=== PATIENT | female | born 2000 | race Hispanic/Latino ===

== ENCOUNTER 2019-10-26 00:17 | Inpatient (IN) | payer OTHER ==
[~2019-10-26] VITALS: Ht 149.9 cm; Wt 49.4 kg
[2019-10-26 00:49] LABS: APPEARANCE,URINE Clear (CLEAR); BILIRUBIN,URINE Negative (NEGATIVE); COLOR,URINE Yellow (YELLOW); GLUCOSE, URINE (UA) >=1000 mg/dL (NEGATIVE); KETONES,URINE Negative (NEGATIVE); LEUKOCYTE ESTERASE ,URINE Negative (NEGATIVE); NITRATE,URINE Negative (NEGATIVE); OCCULT BLOOD,URINE Negative (NEGATIVE); PROTEIN,URINE POS 2+ mg/dL (NEGATIVE)
[2019-10-26 01:12] LABS: BASOPHILS % (AUTO) 0.3 % (0.0-5.0); EOSINOPHILS % (AUTO) 2.1 % (0.0-8.0); HEMATOCRIT 41.1 % (36-48); LYMPHOCYTES % (AUTO) 25.5 % (21.0-51.0); MEAN CORPUSCULAR HEMOGLOBIN 26.5 pg (27.0-33.0); MEAN CORPUSCULAR HGB CONC 33.1 g/dL (32.0-36.0); MONOCYTES % (AUTO) 9.8 % (3.0-13.0); NEUTROPHILS % (AUTO) 61.9 % (40.0-77.0); PLATELET COUNT (AUTO) 432 K/uL (130-400); RED BLOOD CELL COUNT(AUTO) 5.14 MIL/uL (4.00-5.50); WHITE BLOOD COUNT (AUTO) 12.2 K/uL (4.8-10.8)
[2019-10-26 01:17] LABS: BACTERIA,URINE Few /HPF (None Seen); SQUAMOUS EPITHELIAL CELL,UR 0-2 /HPF (0-2); WBC,URINE 0-1 /HPF (0-1)
[2019-10-26 01:18] LABS: AMORPHOUS SEDIMENT,UR Few /LPF (None Seen)
[2019-10-26 01:22] LABS: CREATININE 0.5 mg/dL (0.5-1.5); POTASSIUM 3.7 mmol/L (3.5-5.1)
[2019-10-26 01:26] LABS: ALBUMIN 2.8 g/dL (3.5-5.0); BILIRUBIN,TOTAL 0.1 mg/dL (0.2-1.0); TOTAL PROTEIN, SERUM 8.9 g/dL (6.0-8.3)
[2019-10-26 01:29] LABS: INR 0.92 (0.85-1.15)
[2019-10-26] MEDS ORDERED: ALBUTEROL INHALER 90MCG/INH IH ONE (01:29)
[2019-10-26 01:43] LABS: ABG HCO3 28.2 mmol/L (21.0-28.0); ABG OXYGEN SATURATION 89.8 % (95.0-99.0); ABG PCO2 41 mmHg (32-45)
[2019-10-26] MEDS ORDERED: ZOSYN 3.375GM+NS 50ML 50 ML IV ONE (01:43)
[2019-10-26] MEDS ORDERED: IOHEXOL-350 75 ML VIAL IV ONE (02:29)
[2019-10-26] MEDS ORDERED: ACETAMINOPHEN 325 MG TAB PO PRN ×2 (03:00)
[2019-10-26] MEDS ORDERED: SODIUM CHLORIDE 0.9% 1000ML 1,000 ML IV SCH (03:00)
[2019-10-26] MEDS ORDERED: ONDANSETRON HCL 4 MG/2 ML VIAL IV PRN (03:00)
[2019-10-26] MEDS: AZITHROMYCIN 500MG+NS 250ML 250 ML IV SCH (03:00)
[2019-10-26] MEDS ORDERED: AZITHROMYCIN 500MG+NS 250ML 250 ML IV ONE (03:24)
[2019-10-26] MEDS ORDERED: ONDANSETRON HCL 4 MG/2 ML VIAL ONE (03:47)
[2019-10-26] MEDS ORDERED: POLYETHYLENE GLYCOL 3350 17 GM POWD.PACK PO PRN (04:15)
[2019-10-26] MEDS ORDERED: ALBUTEROL INHALER 90MCG/INH IH PRN (04:15)
--- NOTE | 2019-10-26 05:00 | NUR ---
NEW ADMIT 19 year old, female, received from ED with a diagnosis of acute respiratory failure. Pt is A&Ox4. O2 noted at 4L/NC. Lung sounds with crackles bilat. SOB with exertion. Pt is Micronesian speaking only. 18g IV noted to right FA, site without redness, swelling, or warmth. oriented to room, side rails up x 2, bed in lowest position and locked. Instructed to call for need will. cont to monitor.
[2019-10-26 05:06] VITALS: BP 109/60
[2019-10-26] MEDS ORDERED: INSLAN SQ (05:57)
[2019-10-26] MEDS ORDERED: [UNRECOGNIZED DRUG - CODE] IH (06:09)
[2019-10-26] MEDS ORDERED: folic PO (06:09)
[2019-10-26] MEDS ORDERED: INSU100V3 SQ (06:09)
[2019-10-26] MEDS ORDERED: VITAD400 PO (06:09)
[2019-10-26] MEDS ORDERED: SYMB8060 IH (06:09)
[2019-10-26] MEDS ORDERED: creon (06:09)
[2019-10-26] MEDS ORDERED: ALBUHFA IH (06:09)
[2019-10-26] MEDS ORDERED: GLUC1VIA14 IJ (06:09)
[2019-10-26] MEDS: INSULIN HUMULIN R 100 UNIT/ML 3ML SQ SCH ×4 (06:47→20:54)
[2019-10-26] MEDS ORDERED: ERGOCALCIFEROL (VITAMIN D2) 50,000 UNIT CAPSULE PO SCH (09:00)
[2019-10-26 09:02] VITALS: BP 104/58
[2019-10-26] MEDS: DOCUSATE SODIUM 100 MG CAP PO SCH ×2 (09:27→20:52)
[2019-10-26] MEDS: ASCORBIC ACID 500 MG TAB PO SCH (09:27)
[2019-10-26] MEDS: DOXYCYCLINE 100MG+NS 250ML 250 ML IV SCH ×2 (09:27→18:27)
[2019-10-26] MEDS: FOLIC ACID 1 MG TABLET PO SCH (09:27)
[2019-10-26] MEDS: METHYLPREDNISOLONE SOD SUCC 40MG/ML 1ML IVP SCH ×2 (09:27→14:18)
[2019-10-26] MEDS: ACETYLCYSTEINE 600 MG CAPSULE PO SCH ×2 (09:27→20:54)
[2019-10-26] MEDS: ENOXAPARIN SODIUM 40 MG/0.4 ML SYRINGE SQ SCH (09:28)
[2019-10-26] MEDS: ZINC SULFATE 220 CAPSULE PO SCH (09:29)
[2019-10-26] MEDS ORDERED: VANCOMYCIN PROTOCOL PER PHARMACY IV SCH (11:45)
[2019-10-26 12:00] VITALS: BP 97/56
[2019-10-26] MEDS: ZOSYN 3.375GM+NS 50ML 50 ML IV SCH ×2 (12:51→20:54)
[2019-10-26] MEDS ORDERED: VANCOMYCIN 750MG + NS 250 ML IV SCH ×2 (13:00)
[2019-10-26] MEDS ORDERED: COMPOUND IV REFRIGERATED 1 EACH IVSOLN MISC PRN (13:00)
[2019-10-26 16:00] VITALS: BP 111/70
[2019-10-26] MEDS: LIPASE/PROTEASE/AMYLASE 5000/17000/24000 PO SCH (17:00)
--- NOTE | 2019-10-26 18:56 | NUR ---
INITIAL: Call placed to pts room. Was able to speak w pt via phone. Per pt prior to admission was living w her aunt Althea. She is independent w ambulation and ADLs. She owns a nebulizer machine. Pt states that she feels safe and comfortable to [place] home at [place]. discussed w her $4 prescription drug program avail via [facility] or [facility]. States she sometimes sees a orchid transplanter in [facility]. CM to continue to follow and wait for Md recommendations. Addendum: 10/27/19 at 1858 by MILES BEST Amended: Links added.
[2019-10-26 19:00] VITALS: BP 111/67
[2019-10-26] MEDS: INSULIN GLARGINE 100 UNITS/ML 10 ML VIAL SQ SCH (20:53)
[2019-10-26 23:00] VITALS: BP 103/57
[2019-10-27] MEDS: DOXYCYCLINE 100MG+NS 250ML 250 ML IV SCH ×3 (01:37→21:00)
[2019-10-27 03:00] VITALS: BP 101/58
[2019-10-27] MEDS: ZOSYN 3.375GM+NS 50ML 50 ML IV SCH ×3 (04:29→20:01)
[2019-10-27 05:36] LABS: BASOPHILS % (AUTO) 0.4 % (0.0-5.0); EOSINOPHILS % (AUTO) 1.6 % (0.0-8.0); HEMATOCRIT 38.6 % (36-48); LYMPHOCYTES % (AUTO) 34.3 % (21.0-51.0); MEAN CORPUSCULAR HEMOGLOBIN 26.3 pg (27.0-33.0); MEAN CORPUSCULAR HGB CONC 32.1 g/dL (32.0-36.0); MEAN CORPUSCULAR VOLUME 81.8 fL (80-100); NEUTROPHILS % (AUTO) 54.3 % (40.0-77.0); PLATELET COUNT (AUTO) 399 K/uL (130-400); RED BLOOD CELL COUNT(AUTO) 4.72 MIL/uL (4.00-5.50)
[2019-10-27 06:18] LABS: ALANINE AMINOTRANSFERASE 14 U/L (12-78); ALBUMIN 2.3 g/dL (3.5-5.0); ASPARTATE AMINOTRANSFERASE 10 U/L (10-37); BILIRUBIN,TOTAL 0.2 mg/dL (0.2-1.0); CARBON DIOXIDE 26 mmol/L (21-32); CHLORIDE 102 mmol/L (101-111); CREATININE 0.5 mg/dL (0.5-1.5); GLOMERULAR FILTR. RATE CALC 167 mL/min (>60); GLUCOSE,RANDOM 248 mg/dL (70-105); LACTATE DEHYDROGENASE 118 U/L (81-234); POTASSIUM 3.8 mmol/L (3.5-5.1); SODIUM SERUM 137 mmol/L (136-145); TOTAL PROTEIN, SERUM 8.1 g/dL (6.0-8.3); UREA NITROGEN, BLOOD 13 mg/dL (7-18)
[2019-10-27] MEDS: LIPASE/PROTEASE/AMYLASE 5000/17000/24000 PO SCH ×3 (06:35→17:51)
[2019-10-27] MEDS: INSULIN HUMULIN R 100 UNIT/ML 3ML SQ SCH ×4 (06:37→20:27)
[2019-10-27 08:00] VITALS: BP 94/62
[2019-10-27] MEDS: PREDNISONE 20 MG TABLET PO SCH (09:53)
[2019-10-27] MEDS: ENOXAPARIN SODIUM 40 MG/0.4 ML SYRINGE SQ SCH (09:53)
[2019-10-27] MEDS: ZINC SULFATE 220 CAPSULE PO SCH (09:53)
[2019-10-27] MEDS: AZITHROMYCIN 500MG+NS 250ML 250 ML IV SCH (09:53)
[2019-10-27] MEDS: ASCORBIC ACID 500 MG TAB PO SCH (09:53)
[2019-10-27] MEDS: ACETYLCYSTEINE 600 MG CAPSULE PO SCH ×2 (09:53→20:28)
[2019-10-27] MEDS: DOCUSATE SODIUM 100 MG CAP PO SCH ×2 (09:53→20:28)
[2019-10-27] MEDS: FOLIC ACID 1 MG TABLET PO SCH (09:53)
[2019-10-27 11:00] VITALS: BP 95/64
[2019-10-27] MEDS ORDERED: ALBUTEROL INHALER 90MCG/INH IH PRN (12:00)
[2019-10-27 16:00] VITALS: BP 171/51
[2019-10-27] MEDS: BUDESONIDE 0.5 MG/2 ML INH IH SCH (18:00)
[2019-10-27] MEDS: ALBUTEROL SULFATE 0.083% 2.5 MG/3 ML INH IH SCH (18:00)
--- NOTE | 2019-10-27 18:55 | NUR ---
Proventil and pulmicort not given in place of Symbicort and albuterol inhalers due to these drugs not recommended for suspected COVID pts. the pt is sitting up in bed on the phone. No respiratory distress noted. this information was passed on in report.
[2019-10-27 19:35] VITALS: BP 111/80
[2019-10-27] MEDS: INSULIN GLARGINE 100 UNITS/ML 10 ML VIAL SQ SCH (20:26)
[2019-10-28 00:05] VITALS: BP 99/59
[2019-10-28] MEDS: ZOSYN 3.375GM+NS 50ML 50 ML IV SCH ×2 (03:48→11:31)
[2019-10-28 05:40] LABS: BASOPHILS % (AUTO) 0.5 % (0.0-5.0); EOSINOPHILS % (AUTO) 2.6 % (0.0-8.0); HEMATOCRIT 39.4 % (36-48); LYMPHOCYTES % (AUTO) 42.7 % (21.0-51.0); MEAN CORPUSCULAR HEMOGLOBIN 26.3 pg (27.0-33.0); MEAN CORPUSCULAR VOLUME 82.1 fL (80-100); MONOCYTES % (AUTO) 8.2 % (3.0-13.0); NEUTROPHILS % (AUTO) 45.8 % (40.0-77.0); PLATELET COUNT (AUTO) 422 K/uL (130-400); RED CELL DISTRIBUTION WIDTH 14.2 % (11.0-15.5); WHITE BLOOD COUNT (AUTO) 9.9 K/uL (4.8-10.8)
[2019-10-28 05:50] VITALS: BP 98/57
[2019-10-28 05:58] LABS: ALANINE AMINOTRANSFERASE 13 U/L (12-78); ALBUMIN 2.4 g/dL (3.5-5.0); ASPARTATE AMINOTRANSFERASE 12 U/L (10-37); BILIRUBIN,TOTAL 0.1 mg/dL (0.2-1.0); CARBON DIOXIDE 28 mmol/L (21-32); CHLORIDE 106 mmol/L (101-111); CREATININE 0.4 mg/dL (0.5-1.5); GLOMERULAR FILTR. RATE CALC 216 mL/min (>60); GLUCOSE,RANDOM 72 mg/dL (70-105); LACTATE DEHYDROGENASE 122 U/L (81-234); POTASSIUM 3.2 mmol/L (3.5-5.1); SODIUM SERUM 142 mmol/L (136-145); TOTAL PROTEIN, SERUM 8.2 g/dL (6.0-8.3); UREA NITROGEN, BLOOD 16 mg/dL (7-18)
[2019-10-28] MEDS: ALBUTEROL SULFATE 0.083% 2.5 MG/3 ML INH IH SCH ×4 (06:00→18:00)
[2019-10-28] MEDS: BUDESONIDE 0.5 MG/2 ML INH IH SCH ×2 (06:00→18:00)
[2019-10-28] MEDS: INSULIN HUMULIN R 100 UNIT/ML 3ML SQ SCH ×4 (06:37→20:23)
[2019-10-28] MEDS: LIPASE/PROTEASE/AMYLASE 5000/17000/24000 PO SCH ×3 (06:40→17:14)
[2019-10-28 07:38] VITALS: BP 96/60
[2019-10-28] MEDS: ASCORBIC ACID 500 MG TAB PO SCH (08:57)
[2019-10-28] MEDS: DOCUSATE SODIUM 100 MG CAP PO SCH (08:57)
[2019-10-28] MEDS: ZINC SULFATE 220 CAPSULE PO SCH (08:57)
[2019-10-28] MEDS: PREDNISONE 20 MG TABLET PO SCH (08:57)
[2019-10-28] MEDS: ACETYLCYSTEINE 600 MG CAPSULE PO SCH (08:57)
[2019-10-28] MEDS: FOLIC ACID 1 MG TABLET PO SCH (08:57)
[2019-10-28] MEDS: ENOXAPARIN SODIUM 40 MG/0.4 ML SYRINGE SQ SCH (08:58)
[2019-10-28] MEDS: DOXYCYCLINE 100MG+NS 250ML 250 ML IV SCH (09:39)
[2019-10-28 12:17] VITALS: BP 105/97
[2019-10-28] MEDS ORDERED: POTASSIUM CHLORIDE 20MEQ/100ML 100 ML IV PRN (14:00)
[2019-10-28] MEDS ORDERED: LIDOCAINE HCL-MPF 1% 2ML VIAL IV PRN (14:00)
[2019-10-28] MEDS ORDERED: POTASSIUM CHLORIDE 20 MEQ ERTAB PO PRN (14:00)
--- NOTE | 2019-10-28 15:42 | NUR ---
TRANSFER PATIENT SEEN BY DR RAMIREZ AT BEDSIDE.ORDERS GIVEN TO TRANSFER PATIENT TO [facility] DUE TO THE PATIENT NEED FOR PULMOZYME FOR CF. HOSPITAL PHARMACY DO NOT HAVE THAT MEDICATION IN STOCK. CHARGE NURSE AND DRESSMAKER OR TAILOR NOTIFIED.PENDING PAPERWORK FOR TRANSFER. PATIENT IN BED AT THIS TIME NAD,VSS,DENIES PAIN,DENIES SOB.
[2019-10-28 16:00] VITALS: BP 105/69
[2019-10-28] MEDS ORDERED: INSULIN HUMULIN R 100 UNIT/ML 3ML SQ SCH (17:00)
--- NOTE | 2019-10-28 17:11 | NUR ---
DC PLAN DR. RAMIREZ SPOKE TO DR. MASON LET HIM KNOW THAT PATIENT NEED TRANSFER TO [facility] IN [place]. SAID DR. FONTANA [phone]. HAD DR. RAMIREZ SIGN MOT GAVE TO [employer] MACHINE OPERATOR. Addendum: 10/28/19 at 1712 by ARGENTINA JADE RN CM Amended: Links added.
[2019-10-28] MEDS ORDERED: INSULIN GLARGINE 100 UNITS/ML 10 ML VIAL SQ SCH (21:00)
== END 2019-10-28 20:45 | disposition short-term general hospital (02) | DRG 177 ==
LOC: EDH 00:17 → EDHIP 00:18 → 2DH 04:00
PROVIDERS: ADMIT Internal Medicine; ATTEND Internal Medicine
DX: U07.1 COVID-19 (principal); A41.9 Sepsis, unspecified organism; J96.01 Acute respiratory failure with hypoxia; E84.0 Cystic fibrosis with pulmonary manifestations; J12.89 Other viral pneumonia; J47.0 Bronchiectasis with acute lower respiratory infection; E10.65 Type 1 diabetes mellitus with hyperglycemia; E87.6 Hypokalemia; E88.09 Other disorders of plasma-protein metabolism, not elsewhere classified; K86.89 Other specified diseases of pancreas; Z79.4 Long term (current) use of insulin
CPT/HCPCS: 36415; 36600; 71045; 71275; 80053; 81001; 81025; 82550; 82728; 82803; 82948; 83605; 83615; 84145; 84484; 85025; 85378; 85610; 85730; 86140; 86900; 86901; 87040; 87088; 87426; 87804; 93005; G0378; J0456; J1650; J1815; J2405; J2543; J2920; J3370; J3490; J7050; Q9967; U0003